=== PATIENT | male | born 1990 | race Two or more races ===

== ENCOUNTER 2016-03-22 11:13 | Emergency (ER) | payer OTHER ==
--- NOTE | 2016-03-22 12:00 | REP ---
Clinical: Constipation and abdominal pain. Technique: Supine and upright views of the abdomen and pelvis. Findings: Supine and upright views of the abdomen and pelvis demonstrate nonspecific bowel gas pattern without obstruction or perforation. No organomegaly. No abnormal calcifications. Skeletal structures normal for age. Impression: Nonspecific bowel gas pattern. Signed by Prasad Fabian MD 03/22/2016 11:51 A
[2016-03-22] MEDS ORDERED: MAGNESIUM CITRATE 300 ML BTL As Ordered ONE (13:09)
--- NOTE | 2016-03-22 13:23 | EDDOCDS ---
Nurse's Notes [facility] Name: Nelson Thrasher Age: 25 yrs Sex: Male : 1990 Arrival Date: 03/22/2016 Time: 11:13 Bed I4 / M4 Private MD: NO PRIMARY PHYSICIAN, . Diagnosis: Constipation, unspecified Presentation: 03/22 11:20 Presenting complaint: Patient states: Hasn't had a bowel movement in 2 weeks. Has tried mcp MOM without results. Risk factors: the patient reports not having a history of previous torsion. Adult Sepsis Screening: The patient does not have new or worsening altered mentation. Patient's respiratory rate is less than 22. Systolic blood pressure is greater than 100. Patient has a qSOFA score of 0- Negative Sepsis Screen. Suicide/Homicide risk assessment- the patient denies having any suicidal and/or homicidal ideations and does not present with any other emotional, behavioral or mental health complaints. Status: Patient is not a client service manager or dependent. Transition of care: patient was not received from another setting of care. 11:20 Acuity: JAD Level 4 [facility] 11:20 Method Of Arrival: Walkin/Carried/Asstd [facility] Triage Assessment: 11:21 General: Appears in no apparent distress, Behavior is cooperative. Pain: Location: [facility] abdomen Pain currently is 5 out of 10 on a pain scale. HIV screening NA for this visit Offered previously. Neurological: No deficits noted. Respiratory: Airway is patent Respiratory effort is even, unlabored. GI: Reports constipation. Derm: Skin is pink, warm & dry. Historical: - Allergies: no known allergies; - Home Meds: 1. none - PMHx: none; - PSHx: Appendectomy; - Social history: Smoking status: Patient uses tobacco products, heavy tobacco smoker. No barriers to communication noted, The patient speaks fluent Kazakh. - Family history: Not pertinent. - : The pt / caregiver states he / she is not on anticoagulants. Home medication list is obtained from the patient. - Exposure Risk Screening:: None identified. Assessment: 13:18 Adult Sepsis Screening: The patient does not have new or worsening altered mentation. ms2 Patient's respiratory rate is less than 22. Systolic blood pressure is greater than 100. Patient has a qSOFA score of 0- Negative Sepsis Screen. General: Appears in no apparent distress, first contact with pt. Behavior is cooperative. Neurological: Level of Consciousness is awake, alert, obeys commands. Respiratory: No deficits noted. Airway is patent Respiratory effort is even, unlabored, Respiratory pattern is regular, symmetrical. GI: Abdomen is non- distended. Derm: Skin is pink, warm & dry. Musculoskeletal: Range of motion intact in all extremities. Vital Signs: 11:16 BP 147 / 74; Pulse 58; Resp 18; Temp 97.9; Pulse Ox 100% ; Weight 70.31 kg; Height 5 elp ft. 8 in. (172.72 cm); 13:04 BP 134 / 70 RA Sitting (auto/reg); Pulse 62; Resp 18; Temp 99.6(TE); Pulse Ox 100% ; jrd Pain 5/10; 11:16 Body Mass Index 23.57 (70.31 kg, 172.72 cm) elp Vitals: 11:16 Log In Time: March 22, 2016 at 11:14. [facility] ED Course: 11:16 Patient visited by Linnette Hewitt PCA. elp 11:16 NO PRIMARY PHYSICIAN, . is Private Physician. elp 11:16 Patient moved to Waiting elp 11:17 Patient visited by Linnette Hewitt PCA. elp 11:17 Patient moved to Pre RCE elp 11:20 Triage Initiated mcp 11:21 Patient visited by Batsheva Kaur RN. [facility] 11:22 Patient moved to I4 / M4 rs3 11:24 [facility] jk8 11:24 Nigel Castillo MD is Attending Physician. jk8 11:25 Patient visited by Rachid Lezama PA-C. jk8 12:35 Abdomen 2 View Returned. EDMS 12:50 Patient visited by Kinga Finn RN. hs1 13:05 Patient visited by Rachid Rhodes PCA. jrd 13:19 The patient / caregiver is instructed regarding the plan of care and ED course. Report ms2 given to santiago at [facility]. 13:21 No IV's were initiated during this patient's visit. No procedures done that require ms2 assistance. Administered Medications: 13:17 Drug: Magnesium Citrate 300 ml [magnesium citrate oral solution (300 mL)] {Note: ms2 dispensed to CO's for pt to take when bake at facility.} Route: PO; Order Results: Radiology Order: Abdomen 2 View Test: Abdomen 2 View REASON FOR EXAMINATION: constipation; Clinical: Constipation and abdominal pain.; ; Technique: Supine and upright views of the abdomen and pelvis.; ; Findings: Supine and upright views of the abdomen and pelvis demonstrate; nonspecific bowel gas pattern without obstruction or perforation. No; organomegaly. No abnormal calcifications. Skeletal structures normal for age.; ; Impression:; Nonspecific bowel gas pattern.; ; ; Signed by; Prasad Fabian MD 03/22/2016 11:51 A; Outcome: 13:00 Discharge ordered by Provider. jk8 13:21 Discharge Assessment: patient administered narcotics - no. The following High Risk ms2 Discharge criteria are identified: None. Discharged to [facility]. Condition: stable. Discharge instructions given to patient, police, Instructed on discharge instructions, follow up and referral plans. medication usage, Demonstrated understanding of instructions, medications, Pt was receptive of discharge instructions/ teaching. Prescriptions given X one faxed. No special radiology studies were completed. Property sent home with patient. 13:22 Patient left the ED. ms2 Signatures: Dispatcher [employer] EDMS Jordan Doll RN RN ms2 Batsheva Kaur RN RN Lamar Woodward RN RN rs3 Kinga Finn RN RN hs1 Linnette Hewitt, INSPECTOR WATER POLLUTION CONTROL INSPECTOR WATER POLLUTION CONTROL Rachid Sanchez, INSPECTOR WATER POLLUTION CONTROL INSPECTOR WATER POLLUTION CONTROL Rachid Zamudio, PA-C PAJankiC jk8 MTDD
--- NOTE | 2016-03-22 13:23 | EDDOCDS ---
Physician Documentation [facility] Name: Nelson Thrasher Age: 25 yrs Sex: Male : 1990 Arrival Date: 03/22/2016 Time: 11:13 Bed I4 / M4 Private MD: NO PRIMARY PHYSICIAN, . Disposition: 03/22/16 13:00 Discharged to Home/Self Care. Impression: Constipation, unspecified. - Condition is Stable. - Prescriptions for Fleet Enema 19- 7 gram/118 mL Rectal Enema - instill 1 bottle by RECTAL route as needed; 2 bottle. Magnesium Citrate Oral Solution - take 1 bottle by ORAL route once daily; 1 bottle. - Medication Reconciliation, Local Pharmacy Hours form. - Follow up: Emergency Department; When: As soon as possible; Reason: Worsening of conditions. Follow up: Private Physician; When: 2 - 3 days; Reason: Recheck today's complaints. - Problem is chronic. - Symptoms have worsened. Historical: - Allergies: no known allergies; - Home Meds: 1. none - PMHx: none; - PSHx: Appendectomy; - Social history: Smoking status: Patient uses tobacco products, heavy tobacco smoker. No barriers to communication noted, The patient speaks fluent American. - Family history: Not pertinent. - : The pt / caregiver states he / she is not on anticoagulants. Home medication list is obtained from the patient. - Exposure Risk Screening:: None identified. Vital Signs: 03/22 11:16 BP 147 / 74; Pulse 58; Resp 18; Temp 97.9; Pulse Ox 100% ; Weight 70.31 kg / 155.01 elp lbs; Height 5 ft. 8 in. (172.72 cm); 13:04 BP 134 / 70 RA Sitting (auto/reg); Pulse 62; Resp 18; Temp 99.6(TE); Pulse Ox 100% ; jrd Pain 5/10; 11:16 Body Mass Index 23.57 (70.31 kg, 172.72 cm) elp MDM: 11:32 Abdomen 2 View Ordered. EDMS 12:39 Abdomen 2 View Reviewed. jk8 13:02 Magnesium Citrate Liquid 300 ml PO once ordered. jk8 13:19 Financial registration complete. mm15 Administered Medications: 13:17 Drug: Magnesium Citrate 300 ml [magnesium citrate oral solution (300 mL)] {Note: ms2 dispensed to CO's for pt to take when bake at facility.} Route: PO; Signatures: Dispatcher [employer] Jordan Durant RN RN ms2 Batsheva Kaur RN RN mcp Mikala Taylor mm15 Rahcid Lezama PA-C PA-C jk8 MTDD
--- NOTE | 2016-03-24 14:23 | EDDOCDS ---
Physician Documentation [facility] Name: Nelson Thrasher Age: 25 yrs Sex: Male : 1990 Arrival Date: 03/22/2016 Time: 11:13 Bed I4 / M4 Private MD: NO PRIMARY PHYSICIAN, . Disposition: 03/22/16 13:00 Discharged to Home/Self Care. Impression: Constipation, unspecified. - Condition is Stable. - Prescriptions for Fleet Enema 19- 7 gram/118 mL Rectal Enema - instill 1 bottle by RECTAL route as needed; 2 bottle. Magnesium Citrate Oral Solution - take 1 bottle by ORAL route once daily; 1 bottle. - Medication Reconciliation, Local Pharmacy Hours form. - Follow up: Emergency Department; When: As soon as possible; Reason: Worsening of conditions. Follow up: Private Physician; When: 2 - 3 days; Reason: Recheck today's complaints. - Problem is chronic. - Symptoms have worsened. Historical: - Allergies: no known allergies; - Home Meds: 1. none - PMHx: none; - PSHx: Appendectomy; - Social history: Smoking status: Patient uses tobacco products, heavy tobacco smoker. No barriers to communication noted, The patient speaks fluent Jordanian. - Family history: Not pertinent. - : The pt / caregiver states he / she is not on anticoagulants. Home medication list is obtained from the patient. - Exposure Risk Screening:: None identified. Vital Signs: 03/22 11:16 BP 147 / 74; Pulse 58; Resp 18; Temp 97.9; Pulse Ox 100% ; Weight 70.31 kg / 155.01 elp lbs; Height 5 ft. 8 in. (172.72 cm); 13:04 BP 134 / 70 RA Sitting (auto/reg); Pulse 62; Resp 18; Temp 99.6(TE); Pulse Ox 100% ; jrd Pain 5/10; 11:16 Body Mass Index 23.57 (70.31 kg, 172.72 cm) elp MDM: 11:32 Abdomen 2 View Ordered. EDMS 12:39 Abdomen 2 View Reviewed. jk8 13:02 Magnesium Citrate Liquid 300 ml PO once ordered. jk8 13:19 Financial registration complete. mm15 14:19 [facility] Payment Agreement was scanned into [employer] and attached to record. mm15 15:51 T-Sheet-- Draft Copy was scanned into [employer] and attached to record. klr Administered Medications: 13:17 Drug: Magnesium Citrate 300 ml [magnesium citrate oral solution (300 mL)] {Note: ms2 dispensed to CO's for pt to take when bake at facility.} Route: PO; Signatures: Dispatcher [employer] Jordan Durant RN RN ms2 Batsheva Kaur RN RN mcp Mikala Taylor mm15 Rachid Lezama PA-C PA-C jk8 Redder, Kathie klr The chart was reviewed and I authenticate all verbal orders and agree with the evaluation and treatment provided.Attachments: 14:19 [facility] Payment Agreement mm15 15:51 T-Sheet-- Draft Copy klr Chart Complete MTDD
--- NOTE | 2016-03-24 14:23 | EDDOCDS ---
Physician Documentation [facility] Name: Nelson Thrasher Age: 25 yrs Sex: Male : 1990 Arrival Date: 03/22/2016 Time: 11:13 Bed I4 / M4 Private MD: NO PRIMARY PHYSICIAN, . Disposition: 03/22/16 13:00 Discharged to Home/Self Care. Impression: Constipation, unspecified. - Condition is Stable. - Prescriptions for Fleet Enema 19- 7 gram/118 mL Rectal Enema - instill 1 bottle by RECTAL route as needed; 2 bottle. Magnesium Citrate Oral Solution - take 1 bottle by ORAL route once daily; 1 bottle. - Medication Reconciliation, Local Pharmacy Hours form. - Follow up: Emergency Department; When: As soon as possible; Reason: Worsening of conditions. Follow up: Private Physician; When: 2 - 3 days; Reason: Recheck today's complaints. - Problem is chronic. - Symptoms have worsened. Historical: - Allergies: no known allergies; - Home Meds: 1. none - PMHx: none; - PSHx: Appendectomy; - Social history: Smoking status: Patient uses tobacco products, heavy tobacco smoker. No barriers to communication noted, The patient speaks fluent Andorran. - Family history: Not pertinent. - : The pt / caregiver states he / she is not on anticoagulants. Home medication list is obtained from the patient. - Exposure Risk Screening:: None identified. Vital Signs: 03/22 11:16 BP 147 / 74; Pulse 58; Resp 18; Temp 97.9; Pulse Ox 100% ; Weight 70.31 kg / 155.01 elp lbs; Height 5 ft. 8 in. (172.72 cm); 13:04 BP 134 / 70 RA Sitting (auto/reg); Pulse 62; Resp 18; Temp 99.6(TE); Pulse Ox 100% ; jrd Pain 5/10; 11:16 Body Mass Index 23.57 (70.31 kg, 172.72 cm) elp MDM: 11:32 Abdomen 2 View Ordered. EDMS 12:39 Abdomen 2 View Reviewed. jk8 13:02 Magnesium Citrate Liquid 300 ml PO once ordered. jk8 13:19 Financial registration complete. mm15 14:19 [facility] Payment Agreement was scanned into [employer] and attached to record. mm15 15:51 T-Sheet-- Draft Copy was scanned into [employer] and attached to record. klr Administered Medications: 13:17 Drug: Magnesium Citrate 300 ml [magnesium citrate oral solution (300 mL)] {Note: ms2 dispensed to CO's for pt to take when bake at facility.} Route: PO; Signatures: Dispatcher [employer] Jordan Durant RN RN ms2 Batsheva Kaur RN RN mcp Mikala Taylor mm15 Rachid Lezama PA-C PA-C jk8 Redder, Kathie klr The chart was reviewed and I authenticate all verbal orders and agree with the evaluation and treatment provided.Attachments: 14:19 [facility] Payment Agreement mm15 15:51 T-Sheet-- Draft Copy klr Chart Complete MTDD
--- NOTE | 2016-03-24 14:23 | EDDOCDS ---
Nurse's Notes [facility] Name: Nelson Thrasher Age: 25 yrs Sex: Male : 1990 Arrival Date: 03/22/2016 Time: 11:13 Bed I4 / M4 Private MD: NO PRIMARY PHYSICIAN, . Diagnosis: Constipation, unspecified Presentation: 03/22 11:20 Presenting complaint: Patient states: Hasn't had a bowel movement in 2 weeks. Has tried mcp MOM without results. Risk factors: the patient reports not having a history of previous torsion. Adult Sepsis Screening: The patient does not have new or worsening altered mentation. Patient's respiratory rate is less than 22. Systolic blood pressure is greater than 100. Patient has a qSOFA score of 0- Negative Sepsis Screen. Suicide/Homicide risk assessment- the patient denies having any suicidal and/or homicidal ideations and does not present with any other emotional, behavioral or mental health complaints. Status: Patient is not a animal care service worker or dependent. Transition of care: patient was not received from another setting of care. 11:20 Acuity: JAD Level 4 [facility] 11:20 Method Of Arrival: Walkin/Carried/Asstd [facility] Triage Assessment: 11:21 General: Appears in no apparent distress, Behavior is cooperative. Pain: Location: [facility] abdomen Pain currently is 5 out of 10 on a pain scale. HIV screening NA for this visit Offered previously. Neurological: No deficits noted. Respiratory: Airway is patent Respiratory effort is even, unlabored. GI: Reports constipation. Derm: Skin is pink, warm & dry. Historical: - Allergies: no known allergies; - Home Meds: 1. none - PMHx: none; - PSHx: Appendectomy; - Social history: Smoking status: Patient uses tobacco products, heavy tobacco smoker. No barriers to communication noted, The patient speaks fluent Estonian. - Family history: Not pertinent. - : The pt / caregiver states he / she is not on anticoagulants. Home medication list is obtained from the patient. - Exposure Risk Screening:: None identified. Assessment: 13:18 Adult Sepsis Screening: The patient does not have new or worsening altered mentation. ms2 Patient's respiratory rate is less than 22. Systolic blood pressure is greater than 100. Patient has a qSOFA score of 0- Negative Sepsis Screen. General: Appears in no apparent distress, first contact with pt. Behavior is cooperative. Neurological: Level of Consciousness is awake, alert, obeys commands. Respiratory: No deficits noted. Airway is patent Respiratory effort is even, unlabored, Respiratory pattern is regular, symmetrical. GI: Abdomen is non- distended. Derm: Skin is pink, warm & dry. Musculoskeletal: Range of motion intact in all extremities. Vital Signs: 11:16 BP 147 / 74; Pulse 58; Resp 18; Temp 97.9; Pulse Ox 100% ; Weight 70.31 kg; Height 5 elp ft. 8 in. (172.72 cm); 13:04 BP 134 / 70 RA Sitting (auto/reg); Pulse 62; Resp 18; Temp 99.6(TE); Pulse Ox 100% ; jrd Pain 5/10; 11:16 Body Mass Index 23.57 (70.31 kg, 172.72 cm) elp Vitals: 11:16 Log In Time: March 22, 2016 at 11:14. [facility] ED Course: 11:16 Patient visited by Linnette Hewitt PCA. elp 11:16 NO PRIMARY PHYSICIAN, . is Private Physician. elp 11:16 Patient moved to Waiting elp 11:17 Patient visited by Linnette Hewitt PCA. elp 11:17 Patient moved to Pre RCE elp 11:20 Triage Initiated mcp 11:21 Patient visited by Batsheva Kaur RN. [facility] 11:22 Patient moved to I4 / M4 rs3 11:24 Rachid Lezama [facility]-C [facility]. jk8 11:24 Nigel Castillo MD is Attending Physician. jk8 11:25 Patient visited by Rachid Lezama PA-C. jk8 12:35 Abdomen 2 View Returned. EDMS 12:50 Patient visited by Kinga Finn RN. hs1 13:05 Patient visited by Rachid Rhodes PCA. jrd 13:19 The patient / caregiver is instructed regarding the plan of care and ED course. Report ms2 given to santiago at [facility]. 13:21 No IV's were initiated during this patient's visit. No procedures done that require ms2 assistance. 14:19 [facility] Payment Agreement was scanned into [address] [facility] [employer] and attached to record. mm15 15:26 Patient name changed from Nelson\S\\S\Price\S\ to Nelson\S\ \S\Price. EDMS 15:51 T-Sheet-- Draft Copy was scanned into [address] [facility] [employer] I and attached to record. klr Administered Medications: 13:17 Drug: Magnesium Citrate 300 ml [magnesium citrate oral solution (300 mL)] {Note: ms2 dispensed to CO's for pt to take when bake at facility.} Route: PO; Order Results: Radiology Order: Abdomen 2 View Test: Abdomen 2 View REASON FOR EXAMINATION: constipation; Clinical: Constipation and abdominal pain.; ; Technique: Supine and upright views of the abdomen and pelvis.; ; Findings: Supine and upright views of the abdomen and pelvis demonstrate; nonspecific bowel gas pattern without obstruction or perforation. No; organomegaly. No abnormal calcifications. Skeletal structures normal for age.; ; Impression:; Nonspecific bowel gas pattern.; ; ; Signed by; Prasad Fabian MD 03/22/2016 11:51 A; Outcome: 13:00 Discharge ordered by Provider. jk8 13:21 Discharge Assessment: patient administered narcotics - no. The following High Risk ms2 Discharge criteria are identified: None. Discharged to [facility]. Condition: stable. Discharge instructions given to patient, police, Instructed on discharge instructions, follow up and referral plans. medication usage, Demonstrated understanding of instructions, medications, Pt was receptive of discharge instructions/ teaching. Prescriptions given X one faxed. No special radiology studies were completed. Property sent home with patient. 13:22 Patient left the ED. ms2 Signatures: [facility] Jordan Doll RN RN ms2 Batsheva Kaur RN RN mcp Soosairaj, Rosemary, RN RN rs3 Kinga Finn RN RN hs1 Mikala Taylor mm15 Linnette Hewitt, MACHINE OPERATOR HOP PICKER MACHINE OPERATOR HOP PICKER Rachid Sanchez, MACHINE OPERATOR HOP PICKER MACHINE OPERATOR HOP PICKER Rachid Zamudio PA-C PA-C jk8 Redder, Kathie klr Chart Complete MTDD
== END 2016-03-22 13:22 | disposition home or self-care (01) ==
LOC: M ED 11:13
DX: K59.00 Constipation, unspecified (principal); F17.210 Nicotine dependence, cigarettes, uncomplicated